=== PATIENT | male | born 1945 | race Caucasian/White ===

== ENCOUNTER → 2017-03-27 | Day surgery (SDC) | payer MEDICARE ==
[~2017-03-27] MED LIST: ASPI-973 PO; Bupivacaine-MPF 0.25% 30 mL Inj INFILTRATE ONE; CeFAZolin 2 Gm/50 mL D5W Duplex Bag IV ONE; CeFAZolin Inj 2 GM in IV Premix 1 EACH IV ONE; DOCO1CAP3 PO; Dexamethasone 4 mg/mL Inj IVPUSH PRN; EPHEDrine Sulfate 50 mg/mL Inj IVPUSH PRN; GABA-500 PO; GING550C3 PO; HYDROmorphone 1 mg/mL Inj IVPUSH PRN; HepLOK Flush 100 unit/mL 5 mL Inj IVFLUSH ONE; Ketamine 10 mg/mL 20 mL Inj ONE; LORA0.5T PO; LOSA100T29 PO; Lactated Ringer's 1,000 ML IV ONE; Lactated Ringer's 500 ML IV PRN; METF500T4 PO; MetoCLOpramide 5 mg/mL 2 mL Inj IVPUSH PRN; OMEP10CA4 PO; Ondansetron 2 mg/mL 2 mL Inj ONE; PIOG30TA2 PO; Phenylephrine 10,000 mCg/mL Inj IVPUSH PRN; Propofol 10 mg/mL 20 mL Inj ONE; fentaNYL-PF 50 mCg/mL 2 mL Inj IVPUSH PRN; oxyCODONE-Acetamin 5-325 mg Tablet PO PRN
[2017-03-27 13:19] VITALS: BP 160/66; PULSE 91; RESP 18; O2SAT 92
--- NOTE | 2017-03-27 14:08 | PCM.HPANE ---
Patient Data Surgeon Admitting Provider: Attending Provider:Kaya Mendez MD Primary Care Physician:Gema Ryan MD Other Provider:Zainab Lioningham Anesthesia Reason for Visit Metastatic Lung Cancer Ht/WT & BMI Height (Feet): 5 Height (Inches): 11 Weight (Kilograms): 102.74 Body Mass Index 31.00 Allergies Coded Allergies: No Known Allergies (Verified Allergy, Unknown, 03/26/17) Past Anesthesia History Anesthesia History: Denies:: Abnormal Airway, Anesthesia Reactions, Difficult Intubation Diabetes History Hx Diabetes?: Yes Type of Diabetes: Type II Glycemic Control: Oral Medication Current Bedside Blood Glucose: 125 MRSA MRSA: No Medications Blood Thinner: Aspirin Hypertension Medication: Yes Home Meds Incl Beta Laura: No Reported Medications Docosahexanoic Acid/Epa (Fish Oil Concentrate Softgel)1 Each Capsule1 Each PO DAILY 03/27/17 Omeprazole 10 Mg Capsule.dr10 Mg PO DAILY Ref 0 03/20/17 Pioglitazone (Actos)30 Mg Clsayx47 Mg PO DAILY Ref 0 03/20/17 Sridevi Root 550 Mg Fxeefcb814 Mg PO 03/20/17 Gabapentin 100 Mg [id number] Mg PO HS 30 Days Ref 0 03/20/17 Lorazepam 0.5 Mg Tablet0.5 Mg PO HS PRN For Insomnia Ref 0 03/20/17 Losartan Potassium 100 Mg Khpodr783 Mg PO DAILY 03/18/17 Metformin 500 Mg Tablet1,500 Mg PO QPM Ref 0 03/18/17 Aspirin 81 Mg Prqaof69 Mg PO DAILY Ref 0 03/18/17 Metformin 500 Mg Tablet1,000 Mg PO MORNING Ref 0 03/18/17 Discontinued Reported Medications Hydrochlorothiazide 12.5 Mg CapsuleUnknown Dose PO DAILY 30 Days Ref 0 03/18/17 Atorvastatin Calcium 10 Mg TabletUnknown Dose PO DAILY Ref 0 03/18/17 Pioglitazone (Actos)15 Mg TabletUnknown Dose PO DAILY Ref 0 03/18/17 History History of ENT Problems?: No HEENT History: Denies:: Abnormal Airway Cataracts Difficult Intubation Dysphagia Hearing Problem Sinus Problem Denture Type: None Teeth Condition: Tooth Decay Hx of Heart Problems?: Yes Cardiovascular History: Positive for:: Cardiac Surgery (3 stents placed here by Dr Dhillon - 7 years ago) Chest Pain Coronary Artery Disease Hypertension Denies:: Congestive Heart Failure Edema Heart Murmur Irregular Heartbeat Pacemaker Thrombophlebitis Hx of Respiratory Problem?: No Respiratory History: Positive for:: Dyspnea Hemoptysis (daily) Denies:: Asthma COPD Chest Surgery Emphysema Oxygen Administration Pneumonia Tuberculosis Use of C-PAP Machine Hx Neurologic Problems?: Yes Neurological History: Positive for:: Dizziness Denies:: Alzheimer's Disease CVA Dementia Headaches Parkinson's Disease Seizures Other Neurological Pertinent: hx of intracranial aneurysm at age 33 with craniotomy, clipping Hx of GI Problems?: No Hx of Problems?: No Male Hx: Denies:: Scrotal Mass Testicular Surgery Skin History: Positive for:: History Skin Disorders? (BASAL CELL) Hx Musculoskeletal Problems?: No Hx of Psycho/Social Problems?: No Hx Surgeries?: Yes (cranial aneurysm with clipping) Hx Any Other Health Problems?: Yes Other History: Positive for:: Cancer (SKIN - recent DX of Right lung Cancer.) Hospitalization (for aneurysm) Denies:: Endocrine Disease Thyroid Disease History Blood Transfusions: Positive for:: Accept Blood Products? Denies:: Blood Transfuse Reaction Blood Transfusions Hx Diabetes: YesBedside Blood Glucose: 125 Hx Alcohol Use: NoHx Substance Use: No Smoking Status: Former Smoker Have You Smoked inLast 12 mo: No Stop/Bang Treated for Sleep Apnea?: Yes Do You Have a CPAP Machine?: No P-Blood Pressure: treated: Yes B- Body Mass Index > 35 kg/m2: No A- Age over 50: Yes N- Neck Large Circumference: No G- Gender Male: Yes LINDA Risk Assessment: High Risk, =/>3 Yes LINDA Category 4 OutPt Procedure: Yes Risk Assessment Category Category 1A: Patient has history of documented sleep apnea, and HAS NOT received any narcotic, sedative or anesthesia administration during this stay. Category 1B: Patient has history of documented sleep apnea, and HAS received any narcotic , sedative or anesthesia administration during this stay Category 2: Patient has SUSPECTED Obstructive Sleep Apnea, and HAS received any narcotic , sedative or anesthesia administration during this stay. Category 3: Patient has SUSPECTED Obstructive Sleep Apnea and HAS NOT received narcotic, sedative or anesthesia administration during this stay. Category 4: Outpatient in Procedural Areas with known sleep apnea or who screen positive for High Risk via the STOP/BANG questionnaire. Exam Exam Vital Signs Vital Signs Date Time Temp Pulse Resp B/P Pulse Ox O2 Delivery O2 Flow Rate FiO2 03/27/17 13:19 36.6 91 18 160/66 92 Room Air General Appearance: Alert, Oriented X3, Cooperative, No Acute Distress HEENT/AIRWAY: MP 2 Lungs: Clear to Auscultation Heart: Exam Unremarkable, Regular Rate/Rhythm, Normal S1, Normal S2 Meds/Labs/Diagnostics Admission Meds Current Medications Lactated Ringer's (Lr) 1,000 ml @ ud STK-MED ONCE IV Last administered on 03/27t 13:05; Start 03/27/17 at 13:05; Stop 03/27/17 at 13:06; Status DC Bedside Blood Glucose: 125 Labs Pltlts 48 Plan Impression Patient chart reviewed, patient interviewed and anesthestic plan with risks, benefits, and alternatives discussed, and informed consent obtained. NPO per Anesth. Guidelines: Yes ASA Physical Status: ASA4 Life Threatening Anesthetic Plan: MAC Bene/Risks/Altern/Consents: Yes HP Complete Prior to Induction: Yes Gera Glaser MD Mar 27, 2017 14:08
[2017-03-27 15:27] VITALS: BP 142/72; PULSE 91; RESP 16; O2SAT 92
--- NOTE | 2017-03-27 15:31 | PCM.SURGOP ---
Surgical Operative Report Date of Service: Mar 27, 2017 Pre Operative Diagnosis Metastatic lung cancer Post Operative Diagnosis Metastatic lung cancer Procedure: Right internal jugular port placement with ultrasound guidance with interpretation, and with fluoroscopic guidance with interpretation. Surgeon and Vinyl Top Installer: Surgeon: Kaya Mendez MD Assistants: Kristen Barnes MS3 Indication for Procedure This is a 72-year-old man who presented with widely metastatic lung cancer. He desired chemotherapy, and therefore port was scheduled. Findings: The port tip was at the cavoatrial junction at the end of the procedure. The port aspirated and flushed easily. It was flushed with 10 mL of heparin solution, 100U/mL, at the end of the case. Procedure Details The patient was brought to the operating room and placed in supine position. General anesthesia with a LMA was smoothly induced. Antibiotics were infused. A warming blanket and SCDs were placed. The operative field was prepped and draped in sterile fashion. A pause was performed to confirm the correct patient , procedure, site, and side. The right internal jugular vein was identified with the ultrasound. It was then accessed with a single stick, and a wire was threaded. Fluoroscopy confirmed the wires presence on the right side of the heart. The position of the tip of the wire at the cavoatrial junction was measured. A pocket was made in the tissue overlying the right pectoralis. The port was inserted and sewn into place with two interrupted Prolene stitches. It was then tunneled to the site of the wire using a small counter incision. The port catheter was then cut to the appropriate size as previously measured by the wires position on fluoroscopy. Dilation was then performed under fluoroscopic guidance. The sheath was left in place and the catheter was inserted. The sheath was removed and the two sides were found to be completely intact. The tip of the port was found to be positioned at the cavoatrial junction on fluoroscopy. The catheter was not kinked on fluoroscopy. The port aspirated and flushed easily at the end of the case. It was infused with 10 mL of 100 units/mL heparin solution. The subcutaneous tissue overlying the port was closed with a 3-0 Vicryl stitch. The skin at the port site, the wire access site, and counter incision was closed with a 4-0 subcuticular Monocryl stitch. Marcaine 0.5% with epinephrine was injected in the skin overlying the port as well as the stick site. A sterile dressing was placed. The patient tolerated the procedure well, and was awakened from general anesthesia and taken to the postoperative care unit in good condition. Complications There were no periprocedural complications identified. Surgical Specimen Removed: No Specimen sent to Pathology: No Anesthetic Plan: MAC Grafts, Implants: Implants-See Implant Record Output, Estimated Blood Loss: 10 (ml) Blood Administration during ochoa: No Kaya Mendez MD Mar 27, 2017 15:31
--- NOTE | 2017-03-27 16:08 | PCM.ANEP1 ---
Post Anesthesia PACU Phase 1 Assessment Vital Signs Vital Signs Date Time Temp Pulse Resp B/P Pulse Ox O2 Delivery O2 Flow Rate FiO2 03/27/17 15:27 36.3 91 16 142/72 92 Room Air 03/27/17 13:19 36.6 91 18 160/66 92 Room Air Anesthetic Administered: MAC Level of Alertness: Awake, talking MOULTON's with Equal Strength: Yes Pain: No Nausea or Vomiting: No CV Function & Hydration Stable: Yes Airway Device: Oxygen Delivery: Room Air Lungs: Clear to Auscultation PACU Phase 2 Assessment Complications: No Follow up Care: No Patient Instructions Provided: N/A Gera Glaser MD Mar 27, 2017 16:08
--- NOTE | 2017-03-27 16:34 | DRSVH ---
PROCEDURE: X-RAY CHEST ONE VIEW, PORTABLE ([id number]) INDICATIONS: port placement TECHNIQUE: One view of the chest was acquired. COMPARISON: [facility], CT, CT CHEST ABD PELVIS W CON, 03/21/2017, 9:36. Outside Film, C R, XR CHEST 2VW, 03/04/2017, 15:53. FINDINGS: Surgical changes and devices: A chest port with the tip projecting in the mid SVC. Lungs and pleura: Dense consolidation in the right midlung and right perihilar region. There is mildl y increased rightward mediastinal shift and right lung volume loss suggestive of atelectasis/collapse . No pneumothorax. Mediastinum: Mediastinal contours appear normal. Heart size is normal. Bones and chest wall: No suspicious bony lesions. Overlying soft tissues appear unremarkable. IMPRESSION: No pneumothorax, status post right chest port placement with the tip projecting in the mid SVC. Right midlung consolidative opacity which could represent atelectasis, abnormal soft tissue/mass or p otentially fissural fluid, although recommend clinical correlation to exclude pneumonia Dictated by: Leandro Hill M.D. on 03/27/2017 at 16:18 Approved by: Leandro Hill M.D. on 03/27/2017 at 16:33
== END | disposition home or self-care (01) ==
LOC: SAS 12:45
PROVIDERS: ATTEND Surgery
PROC: 02HV33Z Insertion of Infusion Device into Superior Vena Cava, Percutaneous Approach (ICD-10-PCS; 2017-03-27)
PROC: B5131ZA Fluoroscopy of Right Jugular Veins using Low Osmolar Contrast, Guidance (ICD-10-PCS; 2017-03-27)
PROC: 0JH60XZ Insertion of Tunneled Vascular Access Device into Chest Subcutaneous Tissue and Fascia, Open Approach (ICD-10-PCS; principal; 2017-03-27 15:00)
DX: C34.2 Malignant neoplasm of middle lobe, bronchus or lung (principal); C79.51 Secondary malignant neoplasm of bone; E11.9 Type 2 diabetes mellitus without complications; E78.5 Hyperlipidemia, unspecified; I10 Essential (primary) hypertension; I25.10 Atherosclerotic heart disease of native coronary artery without angina pectoris; Z95.5 Presence of coronary angioplasty implant and graft; I25.2 Old myocardial infarction; Z85.828 Personal history of other malignant neoplasm of skin; Z79.4 Long term (current) use of insulin; Z79.84 Long term (current) use of oral hypoglycemic drugs; Z87.891 Personal history of nicotine dependence; Z79.82 Long term (current) use of aspirin